=== PATIENT | female | born 1940 | race Hispanic/Latino ===

== ENCOUNTER → 2018-12-22 | Outpatient (CLI) | payer MEDICARE | END | disposition home or self-care (01) | LOC: SHCH 11:01 | PROVIDERS: ATTEND Internal Medicine Cardiovascular Disease | DX: I25.10 Atherosclerotic heart disease of native coronary artery without angina pectoris (principal); I10 Essential (primary) hypertension | CPT/HCPCS: 93306 ==

== ENCOUNTER → 2021-01-25 | Outpatient (CLI) | payer OTHER, MEDICARE | END | disposition home or self-care (01) | LOC: SHCH 09:34 | PROVIDERS: ATTEND Internal Medicine Cardiovascular Disease | DX: I35.2 Nonrheumatic aortic (valve) stenosis with insufficiency (principal); E78.5 Hyperlipidemia, unspecified; E11.9 Type 2 diabetes mellitus without complications; R55 Syncope and collapse | CPT/HCPCS: 93306; 93356 ==

== ENCOUNTER → 2021-01-30 | Outpatient (CLI) | payer OTHER, MEDICARE | END | disposition home or self-care (01) | LOC: SHCH 10:40 | PROVIDERS: ATTEND Internal Medicine Cardiovascular Disease | DX: G45.1 Carotid artery syndrome (hemispheric) (principal) | CPT/HCPCS: 93880 ==

== ENCOUNTER → 2022-05-07 | Outpatient (CLI) | payer OTHER, MEDICARE | END | disposition home or self-care (01) | LOC: SHCH 13:27 | PROVIDERS: ATTEND Internal Medicine Cardiovascular Disease | DX: I11.9 Hypertensive heart disease without heart failure (principal); I35.0 Nonrheumatic aortic (valve) stenosis; E78.5 Hyperlipidemia, unspecified; E11.9 Type 2 diabetes mellitus without complications | CPT/HCPCS: 93306 ==

== ENCOUNTER → 2023-04-29 | Outpatient (CLI) | payer OTHER, MEDICARE | END | disposition home or self-care (01) | LOC: SHCH 09:34 | PROVIDERS: ATTEND Internal Medicine Cardiovascular Disease | DX: I35.2 Nonrheumatic aortic (valve) stenosis with insufficiency (principal); I11.9 Hypertensive heart disease without heart failure; E11.9 Type 2 diabetes mellitus without complications; E78.5 Hyperlipidemia, unspecified | CPT/HCPCS: 93306 ==

== ENCOUNTER → 2024-06-24 | Outpatient (CLI) | payer OTHER, MEDICARE | END | disposition home or self-care (01) | LOC: SHCH 11:03 | PROVIDERS: ATTEND Internal Medicine Cardiovascular Disease | DX: I08.0 Rheumatic disorders of both mitral and aortic valves (principal); I11.9 Hypertensive heart disease without heart failure; I35.0 Nonrheumatic aortic (valve) stenosis | CPT/HCPCS: 93306 ==